=== PATIENT | female | born 1965 | race Two or more races ===

== ENCOUNTER 2024-08-13 09:17 | Outpatient (AMB) | payer MEDICAID, SELFPAY ==
[2024-08-13 10:03] VITALS: BP 151/85; PULSE 66; RESP 18; TEMP 36.7; O2SAT 98; BMI 43.8
--- NOTE | 2024-08-13 10:03 | ORTHONT_ITS ---
Vital signs 08/13/24 10:03 Height 1.52 m Height Method Stated Weight 101.831 kg Weight Measurement Method Standing Scale BMI 43.8 BP 151/85 H Blood Pressure Source Automatic Cuff Blood Pressure Location Right Upper Arm Position Sitting Respiration 18 Pulse 66 Pulse Source Monitor Temp 98.0 F Temp Source Temporal Artery Scan Pulse Oximetry (%) 98 Oxygen Delivery Method Room Air Med/Allergies Allergies & Medications Allergies No Known Drug Allergies Allergy (Verified 08/13/24 10:04) Medication Reconciliation baclofen 10 mg tablet 10 mg PO QDAY 08/13/24 [History Confirmed 08/13/24] captopril 50 mg tablet 50 mg PO BID 08/13/24 [History Confirmed 08/13/24] cetirizine 10 mg tablet 10 mg PO QDAY PRN 08/13/24 [History Confirmed 08/13/24] gabapentin 800 mg tablet 800 mg PO QDAY 08/13/24 [History Confirmed 08/13/24] ibuprofen 800 mg tablet 800 mg PO Q6H 08/13/24 [History Confirmed 08/13/24] meloxicam 7.5 mg tablet 7.5 mg PO QDAY #45 tabs 08/13/24 [Rx] paroxetine HCl 20 mg tablet 20 mg PO QDAY 08/13/24 [History Confirmed 08/13/24] Exam Exam Patient is in no acute distress and is cooperative with the examination today. Breathing is nonlabored. In no respiratory distress. Bilateral extremities were evaluated and demonstrates sensation intact to light touch. Palpable pedal pulses are present. No significant edema is present. Bilateral hips were examined. The patient has no pain with log roll of the hips. Internal rotation to 30 degrees and external rotation to 30 degrees is painless. Negative FADIR. The left knee was examined. The left knee is in varus alignment. Range of motion from 0-115 degrees. Knee is stable to varus and valgus as well as AP translation with <5mm. Patient has a negative McMurrays. There is no pain with patellofemoral compression and no crepitus noted. The knee is tender to palpation medially. The right knee was also examined. The right knee is in varus alignment. Range of motion from 0-120 degrees. Knee is stable to varus and valgus as well as AP translation with <5mm. Patient has a negative McMurrays. There is no pain with patellofemoral compression and no crepitus noted. The knee is tender to palpation medially. Patient has No weightbearing x-rays Assessment and Plan Problem List (1) Degenerative arthritis of knee, bilateral: Status: Acute Plan: Patient is a pleasant 59-year-old female with bilateral knee pain and bilateral knee arthritis. We discussed nonoperative and operative options. I would like to get weightbearing x-rays to better evaluate her knees. Recommend weight loss as she is morbidly obese. We can try repeat cortisone injections and conservative treatment at this time. Office Procedures GNS Level of Care Nursing/Assessment Patient Status: Initial/New Patient Nursing Assessment/Reassesment: Medication Reconciliation, Update PMH in EMR and Vital Signs Coordination of Care: Complex Care and Chronic Disease 1-5, Education Complex Pt/Fam, Consent,records obtained, informed consent, Results/Orders obtained and Staff clarify orders Special Needs: Language special needs New Patient Charge New Patient Point Assignment: [id number] New Patient Point Charge: [employer] CHAIR Level 3 (4500-0517) MA Intake Visit Data Collection New Patient or Established: New Patient (never been to [facility]) Reason for Visit:: BILATERAL KNEE PAIN Seen by Clinical Staff ONLY (RN/MA): No Verbal consent obtained for Telemed visit?: No Transport Conductor Required: Yes PCP or OBGYN visit in last 3 months: Yes Hx Now: No Do You Feel Safe at Home: Yes Authorities Contacted: N/A Questionairres Past Medical History Past Medical History Have you ever been diagnosed with any of the following: Subjective Visit Visit for: new patient and knee Immunization / Flu Flu Vaccine in the Last 12 Months: Yes Flu Vaccine Exclusion Criteria: Already Received History of Present Illness Chief complaint: BILATERAL KNEE INJECTION Date of injury / onset of symptoms: 3 YEARS She reports she has pain on both sides of her back. She has never had this worked up. She is taking ibuprofen. She has had 2 injections and reports m inimal relief with themPatient is a 59 yo female with bilateral knee pain and osteoarthritis. She had a back injury and reports that this exacerbated the pain. Personal History Occupation: UNEMPLOYED Red flag PMH: BMI BMI Counceling provided: Yes Pain Pain level (0-10): 10 Pain duration: ALL DAY Pain location: inside (medial), outside (lateral), anterior and posterior Pain quality: sharp, dull and aching Pain timing: night and increases with activity Associated signs & symptoms: stiffness Ambulatory data Ambulatory device: cane Treatments Number of previous injections: 2 Improvement with previous injections: No Number of Physical Therapy sessions: 3 Improvement with PT: Yes Improvement with NSAIDS: n/a Review of Systems Review of Systems: All systems negative unless otherwise noted in HPI.
--- NOTE | 2024-08-13 10:17 | XR_ITS ---
Examination: Bilateral knees 2 views Right lateral knee left lateral knee 2 views Bilateral axial knees single view TECHNIQUE: Bilateral AP knees standing single view, bilateral PA knees standing single view flexion Standing right lateral knee left lateral knee 2 views Bilateral axial knees single view Exam date and time: August 13, 2024 1034 hours INDICATIONS: Knee pain years. FINDINGS: Severe osteopenia Advanced narrowing medial joint space right knee Moderate osteoarthritis right patellofemoral joint Severe narrowing medial joint space left knee, [id number] Moderate osteoarthritis lateral patellofemoral joint 21 mm ossified body in the suprapatellar left joint space IMPRESSION: Advanced medial joint space right knee Severe narrowing medial joint space left knee, [id number]
--- NOTE | 2024-08-13 10:19 | XR_ITS ---
Examination: Lumbar spine 3 views Technique one AP lateral coned lateral lower lumbar spine 3 views Exam date and time: August 13, 2024 1034 hours INDICATIONS: Low back pain years FINDINGS: Findings suspicious for inner transverse fusion L3-L5 Prominent lumbar spondylosis No lumbar fracture Diffuse lumbar disc narrowing advanced L3-L4, L5-S1 IMPRESSION: Diffuse lumbar degenerative disc disease, advanced L3-L4, L5-S1 Significant bilateral hip osteoarthritis
== END 2024-08-13 10:20 | disposition home or self-care (01) ==
PROVIDERS: PCP Student in an Organized Health Care Education/Training Program; Referring Provider Student in an Organized Health Care Education/Training Program; Supervising Provider Orthopaedic Surgery Adult Reconstructive Orthopaedic Surgery; Visit Provider Orthopaedic Surgery Adult Reconstructive Orthopaedic Surgery
DX: M17.0 Bilateral primary osteoarthritis of knee (principal); E66.01 Morbid (severe) obesity due to excess calories; Z68.41 Body mass index [BMI] 40.0-44.9, adult; M54.9 Dorsalgia, unspecified
CPT/HCPCS: 72100; 73564; 99203; G0463

== ENCOUNTER 2024-08-27 09:57 | Outpatient (AMB) | payer MEDICAID, SELFPAY ==
[2024-08-27 10:36] VITALS: BP 146/85; PULSE 61; RESP 17; TEMP 36.7; O2SAT 95; BMI 44.0
--- NOTE | 2024-08-27 10:36 | ORTHONT_ITS ---
Vital signs 08/27/24 10:36 Height 1.52 m Height Method Stated Weight 101.69 kg Weight Measurement Method Standing Scale BMI 44.0 BP 146/85 H Blood Pressure Source Automatic Cuff Blood Pressure Location Left Upper Arm Position Sitting Respiration 17 Pulse 61 Pulse Source Monitor Temp 98.1 F Temp Source Temporal Artery Scan Pulse Oximetry (%) 95 Oxygen Delivery Method Room Air Med/Allergies Allergies & Medications Allergies No Known Drug Allergies Allergy (Verified 08/27/24 10:37) Medication Reconciliation baclofen 10 mg tablet 10 mg PO QDAY 08/13/24 [History Confirmed 08/27/24] captopril 50 mg tablet 50 mg PO BID 08/13/24 [History Confirmed 08/27/24] cetirizine 10 mg tablet 10 mg PO QDAY PRN 08/13/24 [History Confirmed 08/27/24] gabapentin 800 mg tablet 800 mg PO QDAY 08/13/24 [History Confirmed 08/27/24] ibuprofen 800 mg tablet 800 mg PO Q6H 08/13/24 [History Confirmed 08/27/24] meloxicam 7.5 mg tablet 7.5 mg PO QDAY #45 tabs 08/13/24 [Rx Confirmed 08/27/24] paroxetine HCl 20 mg tablet 20 mg PO QDAY 08/13/24 [History Confirmed 08/27/24] Exam Exam Patient is in no acute distress and is cooperative with the examination today. Breathing is nonlabored. In no respiratory distress. Bilateral extremities were evaluated and demonstrates sensation intact to light touch. Palpable pedal pulses are present. No significant edema is present. Bilateral hips were examined. The patient has no pain with log roll of the hips. Internal rotation to 30 degrees and external rotation to 30 degrees is painless. Negative FADIR. The left knee was examined. The left knee is in varus alignment. Range of motion from 0-115 degrees. Knee is stable to varus and valgus as well as AP translation with <5mm. Patient has a negative McMurrays. There is no pain with patellofemoral compression and no crepitus noted. The knee is tender to palpation medially. The right knee was also examined. The right knee is in varus alignment. Range of motion from 0-120 degrees. Knee is stable to varus and valgus as well as AP translation with <5mm. Patient has a negative McMurrays. There is no pain with patellofemoral compression and no crepitus noted. The knee is tender to palpation medially. Patient has weight bearing xrays that demonstrate complete joint space obliteration on the left and moderate joint space narrowing on the right Assessment and Plan Problem List (1) Degenerative arthritis of knee, bilateral: Status: Acute Plan: Patient is a pleasant 59-year-old female with bilateral knee pain and bilateral knee arthritis. We discussed nonoperative and operative options. She has significant arthritis and it is getting worked up. We discussed weight loss as well in great detail to help with the knee pain. We can discuss total knee replacement if she can lose weight and be a suitable candidate. Office Procedures GNS Level of Care Nursing/Assessment Patient Status: Established Patient Nursing Assessment/Reassesment: Medication Reconciliation, Update PMH in EMR and Vital Signs Coordination of Care: Complex Care and Chronic Disease 1-5, Consent,records obtained, informed consent, Education Simp Pt/Fam, Results/Orders obtained and Staff clarify orders Special Needs: Language special needs (russian ) Established Patient Charge Established Patient Point Assignment: 90 Established Patient Point Charge: EP Level 3 (80-115) MA Intake Visit Data Collection New Patient or Established: Established Patient (seen at [facility] within 3 years) Reason for Visit:: fu bilat knee xray Seen by Clinical Staff ONLY (RN/MA): No Energy And Sustainability Manager Required: Yes PCP or OBGYN visit in last 3 months: Yes Hx Now: No Do You Feel Safe at Home: Yes Authorities Contacted: N/A Questionairres Past Medical History Past Medical History Have you ever been diagnosed with any of the following: Respiratory Problems Smoking: No Smoking Cessation Counseling: No Smoking Exposure: No Subjective Visit Visit for: follow up visit and knee (bilateral ) Immunization / Flu Flu Vaccine in the Last 12 Months: Yes Flu Vaccine Exclusion Criteria: Already Received History of Present Illness Chief complaint: BILATERAL KNEE INJECTION Date of injury / onset of symptoms: 3 YEARS P jacek is a 59 yo female with bilateral knee pain and osteoarthritis. She had a back injury and reports that this exacerbated the pain. She reports she has pain on both sides of her back. She has never had this worked up. She is taking ibuprofen. She has had 2 injections and reports minimal relief with them Personal History Occupation: UNEMPLOYED Red flag PMH: none BMI Counceling provided: Yes Pain Pain level (0-10): 8 Pain duration: 4 years Pain location: anterior and posterior Pain quality: sharp Pain timing: night and stairs Associated signs & symptoms: stiffness Ambulatory data Ambulatory device: cane Walking distance (minutes): 5 Treatments Number of previous injections: 2 Improvement with previous injections: No Number of Physical Therapy sessions: 0 Improvement with PT: Yes Improvement with NSAIDS: n/a Review of Systems Review of Systems: All systems negative unless otherwise noted in HPI.
== END 2024-08-27 11:25 | disposition home or self-care (01) ==
LOC: HODSRG 09:57
PROVIDERS: PCP Student in an Organized Health Care Education/Training Program; Referring Provider Student in an Organized Health Care Education/Training Program; Supervising Provider Orthopaedic Surgery Adult Reconstructive Orthopaedic Surgery; Visit Provider Orthopaedic Surgery Adult Reconstructive Orthopaedic Surgery
DX: M17.0 Bilateral primary osteoarthritis of knee (principal); M25.562 Pain in left knee; M25.561 Pain in right knee; M54.9 Dorsalgia, unspecified
CPT/HCPCS: 99213; G0463